=== PATIENT | female | born 1995 | race Caucasian/White ===

== ENCOUNTER 2018-08-29 20:12 | Emergency (ER) | payer BC ==
[2018-08-29 20:37] VITALS: BMI 35.0
[2018-08-29] MEDS ORDERED: BACTRIM 400-801 TAB PO (20:40)
[2018-08-29] MEDS ORDERED: MEDROL DOSE PACK4 MG PO (22:04)
[2018-08-29] MEDS ORDERED: VISTARIL50 MG PO (22:04)
[2018-08-29 22:40] VITALS: BP 120/54
== END 2018-08-29 22:40 | disposition home or self-care (01) ==
LOC: D.ER 20:12
DX: T50.995A Adverse effect of other drugs, medicaments and biological substances, initial encounter (principal); Y92.019 Unspecified place in single-family (private) house as the place of occurrence of the external cause